=== PATIENT | female | born 1995 | race Caucasian/White ===

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

== ENCOUNTER 2017-02-07 14:29 | Emergency (ER) | payer MEDICAID, OTHER ==
[2017-02-07 14:30] VITALS: BP 124/77; PULSE 89; RESP 15; TEMP 98.4; O2SAT 99
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
[2017-02-07 15:16] LABS: BASOPHIL # 0.1 TH/MM3 (0-0.2); BASOPHIL % 0.6 % (0.0-2.0); EOSINOPHIL # 0.2 TH/MM3 (0-0.4); EOSINOPHIL % 1.9 % (0.0-4.0); HEMATOCRIT 37.6 % (35.0-46.0); HEMO FLAGS DIFF FINAL; LYMPHOCYTE # 1.9 TH/MM3 (1.0-4.8); MEAN CELL VOLUME 92.1 FL (80.0-100.0); MEAN CORPUSCULAR HEMOGLOBIN 30.8 PG (27.0-34.0); MEAN CORPUSCULAR HGB CONC 33.4 % (32.0-36.0); MONO % 7.7 % (0.0-8.0); NEUT % 67.8 % (16.0-70.0); PLATELET COUNT 278 TH/MM3 (150-450); RED BLOOD COUNT 4.08 MIL/MM3 (4.00-5.30); RED CELL DISTRIBUTION WIDTH 12.2 % (11.6-17.2); WHITE BLOOD COUNT 8.9 TH/MM3 (4.0-11.0)
[2017-02-07 15:32] LABS: ANION GAP 6 MEQ/L (5-15); AST (GOT) 21 U/L (16-38); BICARBONATE 23.6 MEQ/L (21.0-32.0); BLOOD UREA NITROGEN 5 MG/DL (7-18); CHLORIDE 107 MEQ/L (98-107); GLOMERULAR FILTRATION RATE 163 ML/MIN (>89); POTASSIUM 3.7 MEQ/L (3.5-5.1); SODIUM (NA) 137 MEQ/L (136-145)
[2017-02-07 15:34] LABS: ALT (GPT) 39 U/L (9-42)
[2017-02-07] MEDS ORDERED: AZITHROMYCIN PWD FOR SUSP 1 GM PACKET PO ONE (16:00)
[2017-02-07] MEDS ORDERED: LIDOCAINE HCL 1% 50 ML VIAL IM ONE (16:00)
[2017-02-07] MEDS ORDERED: cefTRIAXone 250 MG VIAL IM ONE (16:00)
[2017-02-07] MEDS ORDERED: metroNIDAZOLE 500 MG TAB PO ONE (16:00)
[2017-02-07 16:17] LABS: ALKALINE PHOSPHATASE 64 U/L (45-117); BETA HCG QUANT 93097 MIU/ML (0-5); TOTAL BILIRUBIN ADULT 0.3 MG/DL (0.2-1.0)
--- NOTE | 2017-02-07 16:24 | PD ---
Data Data Last Documented VS Vital Signs Date Time Temp Pulse Resp B/P (MAP) Pulse Ox O2 Delivery O2 Flow Rate FiO2 02/07/17 14:30 98.4 89 15 124/77 (93) 99 Orders Orders Beta Hcg (Quant/Titer) (02/07/17 14:40) Complete Blood Count With Diff (02/07/17 14:40) Comprehensive Metabolic Panel (02/07/17 14:40) Ed Poc Ultrasound (02/07/17 14:40) Gc And Chlamydia Pcr (02/07/17 15:17) Wet Prep Profile (02/07/17 15:17) Metronidazole (Flagyl) (02/07/17 16:00) Azithromycin Powd Pack (Zithromax Powd P (02/07/17 16:00) Ceftriaxone Inj (Rocephin Inj) (02/07/17 16:00) Lidocaine 1% Inj (50 Ml) (Xylocaine 1% I (02/07/17 16:00) Labs Laboratory Tests Test 02/07/17 15:00 02/07/17 15:22 White Blood Count 8.9 TH/MM3 Red Blood Count 4.08 MIL/MM3 Hemoglobin 12.6 GM/DL Hematocrit 37.6 % Mean Corpuscular Volume 92.1 FL Mean Corpuscular Hemoglobin 30.8 PG Mean Corpuscular Hemoglobin Concent 33.4 % Red Cell Distribution Width 12.2 % Platelet Count 278 TH/MM3 Mean Platelet Volume 8.3 FL Neutrophils (%) (Auto) 67.8 % Lymphocytes (%) (Auto) 22.0 % Monocytes (%) (Auto) 7.7 % Eosinophils (%) (Auto) 1.9 % Basophils (%) (Auto) 0.6 % Neutrophils # (Auto) 6.0 TH/MM3 Lymphocytes # (Auto) 1.9 TH/MM3 Monocytes # (Auto) 0.7 TH/MM3 Eosinophils # (Auto) 0.2 TH/MM3 Basophils # (Auto) 0.1 TH/MM3 CBC Comment DIFF FINAL Differential Comment Blood Urea Nitrogen 5 MG/DL Creatinine 0.49 MG/DL Random Glucose 88 MG/DL Total Protein 7.6 GM/DL Albumin 3.5 GM/DL Calcium Level 8.7 MG/DL Alkaline Phosphatase 64 U/L Aspartate Amino Transf (AST/SGOT) 21 U/L Alanine Aminotransferase (ALT/SGPT) 39 U/L Total Bilirubin 0.3 MG/DL Sodium Level 137 MEQ/L Potassium Level 3.7 MEQ/L Chloride Level 107 MEQ/L Carbon Dioxide Level 23.6 MEQ/L Anion Gap 6 MEQ/L Estimat Glomerular Filtration Rate 163 ML/MIN Human Chorionic Gonadotropin, Quant 14090 MIU/ML Clue Cells (Wet Prep) NONE SEEN Vaginal Trichomonas (Wet Prep) PRESENT Vaginal Yeast (Wet Prep) NONE SEEN MDM Supervised Visit with ASHLEY: Yes Narrative Course The history, exam, and medical decision-making in the associated mid-level provider note were completed with my assistance. I reviewed and agree with the findings presented. I attest that I had a [id number] encounter with the patient on the same day, and personally performed and documented my assessment and findings in the medical record. *My assessment and Findings: 21-year-old early with some abdominal pain. Bedside ultrasound reassuring. No Trichomonas. She Describes Scant Bloody Discharge. His May Have Been Vaginal Discharge. No Blood on Exam. Treated for Cervicitis. Recommend Outpatient Follow-Up. Procedures Procedure Narrative Point of care ultrasound: Focused abdominal ultrasound perform immediate the bedside to evaluate for well-being so Martinez injured in roughly consistent with dates , good heart movement. Diagnosis Primary Impression: Trichomonas vaginitis Additional Impression: Qualified Codes: Z3A.12 - 12 weeks gestation of Patient Instructions: General Instructions, Safe Sex (ED) Disposition: 01 DISCHARGE HOME Condition: Stable Mehrdad Downing MD Feb 07, 2017 16:24
[2017-02-07] MEDS ORDERED: PREN1TAB60 PO (16:53)
[2017-02-07 16:55] VITALS: BP 131/69; RESP 18; O2SAT 98
[2017-02-07 18:28] LABS: CHLAMYDIA PCR NOT DETECTED (NOT DETECT); NEISSERIA PCR NOT DETECTED (NOT DETECT)
== END 2017-02-07 17:29 | disposition home or self-care (01) ==
LOC: NEPD 14:29
DX: O98.311 Other infections with a predominantly sexual mode of transmission complicating pregnancy, first trimester (principal); A59.01 Trichomonal vulvovaginitis; O99.331 Smoking (tobacco) complicating pregnancy, first trimester; K21.9 Gastro-esophageal reflux disease without esophagitis; Z3A.12 12 weeks gestation of pregnancy; Z79.899 Other long term (current) drug therapy; Z34.91 Encounter for supervision of normal pregnancy, unspecified, first trimester
CPT/HCPCS: 80053; 84702; 85025; 87210; 87491; 87591; 96372; 99284; J0696

== ENCOUNTER 2017-05-05 21:01 | Emergency (ER) | payer MEDICAID ==
[~2017-05-05 21:01] MED LIST changes: -MACR100C2 PO; +PREN1TAB60 PO; -ZANTTAB PO; -ZOFR4TAB3 SL
--- NOTE | 2017-05-05 21:49 | PD ---
HPI Chief Complaint Lower abdominal pain mainly right sided Date Seen: May 05, 2017 Time Seen: 21:40 Travel History International Travel<30 Days: No Contact w/Intl Traveler<30Days: No Known Affected Area: No History of Present Illness HPI Patient is 21-year-old white female 22 wks presents with lower right- sided lower abdominal pain on and off for several weeks. She sees Dr. Grady for care. Patient denies bleeding or leakage of fluid. heart tones were documented tonight. No contractions seen. Uterus is approximately at the umbilicus. Urine dipstick is negative Weeks Gestation: 22 Para: 0 : 1 History Social History Alcohol Use: No Tobacco Use: No Substance Abuse: No Allergies-Medications (Allergen,Severity, Reaction): Coded Allergies: No Known Allergies (Verified , 02/07/17) Home Meds Reported Medications Vits #90/Iron Fum/FA ( Formula Tablet) 9 Mg Iron-500 Mcg Tablet , 1 TAB PO DAILY 02/07/17 Review of Systems General / Constitutional: No: Fever, Weight Gain, Chills, Other Eyes: No: Diploplia, Blurred Vision, Visual changes, Pain, Photophobia HENT: No: Headaches, Vertigo, Lightheadedness Cardiovascular: No: Irregular Rhythm, Chest Pain or Discomfort, Palpitations, Tachycardia, Syncope, Varicosities, Edema, Cyanosis Respiratory: No: Cough, Short of Breath, Other Gastrointestinal: Abdominal Pain, No: Nausea, Vomiting, Diarrhea Genitourinary: No: Decreased Urinary Output, Oliguria Musculoskeletal: No: Limited ROM, Weakness, Cramping, Edema, Pain Skin: No Rash, No Itching, No Dryness, No Lumps, No Change in Pigmentation, No Change in Nails, No Alopecia, No Lesions Neurologic: No: Weakness, Dizziness, Syncope, Focal Abnormalities, Coordination Problem, Headache, Slurred Speech, Seizures Psychiatric: No: Depression, Suicidal Ideations, Homicidal Ideation Endocrine: No: Heat Intolerance, Cold Intolerance, Polydipsia, Polyuria, Other Physical Exam Narrative GENERAL: Well-nourished, well-developed patient. SKIN: Warm and dry. HEAD: Normocephalic and atraumatic. EYES: No scleral icterus. No injection or drainage. ENT: No nasal drainage noted. Mucous membranes pink. Airway patent. NECK: Supple, trachea midline. No JVD. CARDIOVASCULAR: Regular rate and rhythm without murmurs, gallops, or rubs. RESPIRATORY: Breath sounds equal bilaterally. No accessory muscle use. BREASTS: Bilateral exam showed no masses , no retractions, no nipple discharge. ABDOMEN/GI: Abdomen soft, non-tender, bowel sounds present, no rebound, no guarding Gravid to [-22] weeks size Fundal Height: [-at umbilicus] GENITOURINARY: External Genitalia: intact and normal in appearance BUS glands: [-] Cervix: [-] Dilatation: [-closed] Effacement: [-thick] Station: [-3] Membranes: [intact ] Uterine Contractions: [-none] FHT's: 140s EXTREMITIES: No cyanosis or edema. BACK: Nontender without obvious deformity. No CVA tenderness. NEUROLOGICAL: Awake and alert. Motor and sensory grossly within normal limits. Five out of 5 muscle strength in all muscle groups. Normal speech. Data Data Labs Urine dipstick on OB ED is negative MDM Interpretation(s) Patient is a 21-year-old white female at [address] Grady for care and presents combining of lower right-sided pain on and off for several weeks. This is apparently round ligament pain on that right side this was explained to the patient. Her urine is negative, there are no other etiologies or sources of pain. Plan Plan for patient to be at bedrest at home, Tylenol for pain, heating pad on low across the lower abdomen is fine, and drinking lots of fluid hydrate flush the bladder., She is to follow Dr. Grady for further problems Diagnosis Diagnosis: Primary Impression: Pain of round ligament during Additional Impression: 22 weeks gestation of Disposition: 01 DISCHARGE HOME Condition: Stable Ricki Trivedi II, MD May 05, 2017 21:49
[2017-05-05 22:40] LABS: BLOOD, URINE NEG (NEG); COMMENT (UR) CULT NOT INDICATED; CULTURE IF INDICATED CULT NOT INDICATED; GLUCOSE,URINE 70 mg/dL (NEG); KETONE, URINE NEG (NEG); MUCUS URINE FEW /lpf (OCC); NITRITE,URINE NEG (NEG); SQUAMOUS EPITHELIAL CELL URINE 3 /hpf (0-5); URINE COLOR YELLOW (YELLW/STRAW)
== END 2017-05-05 22:40 | disposition home or self-care (01) ==
LOC: HOBED 21:01
DX: O26.892 Other specified pregnancy related conditions, second trimester (principal); R10.2 Pelvic and perineal pain; Z3A.22 22 weeks gestation of pregnancy
CPT/HCPCS: 81001; 99283

== ENCOUNTER 2017-08-19 22:52 | Emergency (ER) | payer MEDICAID ==
--- NOTE | 2017-08-19 23:54 | PD ---
HPI Chief Complaint Contractions Travel History International Travel<30 Days: No Contact w/Intl Traveler<30Days: No Known Affected Area: No History of Present Illness HPI 22-year-old , IUP at 38.1 care uncomplicated per patient report The patient presents complaining of the onset of contractions this evening, she reports they're every 8 minutes and mild. She denies any aggravating or alleviating factors. There are no attempted treatments. She reports she was checked in the office yesterday and was 2/50/-2. She reports good movement. She denies any leaking of fluid or vaginal bleeding. She has no other concerns or complaints tonight Weeks Gestation: 38 Para: 0 : 1 Miscarriage: 0 : 0 History Past Medical History Narrative Medical History of liver disease, migraines, depression Past Surgical History Narrative Surgical Cholecystectomy Family History Narrative Family History CAD, [place], CVA, diabetes, hypertension, ovarian cancer Social History Alcohol Use: No Tobacco Use: No Substance Abuse: No Allergies-Medications (Allergen,Severity, Reaction): Coded Allergies: No Known Allergies (Verified , 02/07/17) Home Meds Reported Medications Vits #90/Iron Fum/FA ( Formula Tablet) 9 Mg Iron-500 Mcg Tablet , 1 TAB PO DAILY 02/07/17 Review of Systems Except as stated in HPI: all other systems reviewed are Neg Physical Exam Narrative GENERAL: Well-nourished, well-developed patient. SKIN: Warm and dry. HEAD: Normocephalic and atraumatic. EYES: No scleral icterus. No injection or drainage. ENT: No nasal drainage noted. Mucous membranes pink. Airway patent. NECK: Supple, trachea midline. No JVD. CARDIOVASCULAR: Regular rate and rhythm without murmurs, gallops, or rubs. RESPIRATORY: Breath sounds equal bilaterally. No accessory muscle use. BREASTS: Deferred ABDOMEN/GI: Abdomen soft, non-tender, bowel sounds present, no rebound, no guarding Gravid GENITOURINARY: External Genitalia: intact and normal in appearance. Normal BUS. Grossly normal rugae. No cervical or vaginal masses noted. Physiologic discharge. SVE 2/50/-2 per RN. FHT's: heart tones in the 120s moderate long-term variability, good accelerations, no decelerations noted. This category 1 heart rate tracing and a reactive NST. EXTREMITIES: No cyanosis or edema. BACK: Nontender without obvious deformity.. NEUROLOGICAL/musculoskeletal: Awake and alert. Motor and sensory grossly within normal limits. Five out of 5 muscle strength in all muscle groups. Normal speech. Grossly normal range of motion, gait, muscle strength Psychiatric: Grossly normal memory and affect MDM Plan Assessment/plan: 1. IUP at 38 weeks 2. No evidence of active labor: Labor precautions given, education provided, strict labor precautions 3. Reassuring testing with reactive NST and category 1 heart rate tracing. FHR reassuring and appropriate for gestational age. kick counts daily. 4. Follow up with primary OB in 2-3 days or sooner if needed 5. History of migraine headaches 6. History of depression Disposition: 01 DISCHARGE HOME Condition: Stable Patient Instructions: General Instructions, Having Your Baby: The Labor Process (GEN), Movement (ED), Abdominal Pain in (ED) Departure Forms: Tests/Procedures Ingris Hood MD Aug 19, 2017 23:54
--- NOTE | 2017-08-20 10:00 | PD ---
MDM Diagnosis Diagnosis: Primary Impression: 38 weeks gestation of Additional Impression: False labor after 37 weeks of gestation without delivery Disposition: 01 DISCHARGE HOME Condition: Good Patient Instructions: General Instructions, Having Your Baby: The Labor Process (GEN), Movement (ED), Abdominal Pain in (ED) Departure Forms: Tests/Procedures Ingris Hood MD Aug 20, 2017 10:00
== END 2017-08-20 10:57 | disposition home or self-care (01) ==
LOC: HOBED 22:52
DX: O47.1 False labor at or after 37 completed weeks of gestation (principal); O99.343 Other mental disorders complicating pregnancy, third trimester; F32.9 Major depressive disorder, single episode, unspecified; Z3A.38 38 weeks gestation of pregnancy; O26.613 Liver and biliary tract disorders in pregnancy, third trimester; K76.9 Liver disease, unspecified; Z79.899 Other long term (current) drug therapy
CPT/HCPCS: 59025

== ENCOUNTER 2017-08-28 08:14 | Inpatient (IN) | payer MEDICAID ==
[~2017-08-28] VITALS: Ht 175.3 cm; Wt 78.5 kg
[2017-08-28] VITALS (49 sets, daily range): BP systolic 90–140; BP diastolic 52–103; PULSE 63–119; RESP 14–20; TEMP 98–98.8; O2SAT 100
[2017-08-28 09:15] LABS: AUTOMATED NEUTROPHIL # 8.9 TH/MM3 (1.8-7.7); BASOPHIL # 0.1 TH/MM3 (0-0.2); BASOPHIL % 0.7 % (0.0-2.0); EOSINOPHIL # 0.2 TH/MM3 (0-0.4); EOSINOPHIL % 1.6 % (0.0-4.0); HEMATOCRIT 35.2 % (35.0-46.0); HEMOGLOBIN 12.4 GM/DL (11.6-15.3); LYMPH % 19.3 % (9.0-44.0); LYMPHOCYTE # 2.5 TH/MM3 (1.0-4.8); MEAN CELL VOLUME 91.5 FL (80.0-100.0); MEAN CORPUSCULAR HEMOGLOBIN 32.1 PG (27.0-34.0); MEAN CORPUSCULAR HGB CONC 35.1 % (32.0-36.0); MEAN PLATELET VOLUME 9.5 FL (7.0-11.0); MONO % 9.5 % (0.0-8.0); MONOCYTE # 1.2 TH/MM3 (0-0.9); NEUT % 68.9 % (16.0-70.0); PLATELET COUNT 286 TH/MM3 (150-450); RED BLOOD COUNT 3.85 MIL/MM3 (4.00-5.30); RED CELL DISTRIBUTION WIDTH 13.8 % (11.6-17.2)
[2017-08-28 09:16] LABS: BACTERIA, URINE MANY /hpf; BILIRUBIN, URINE NEG (NEG); BLOOD, URINE NEG (NEG); GLUCOSE,URINE NEG (NEG); KETONE, URINE NEG (NEG); MUCUS URINE MANY /lpf (OCC); NITRITE,URINE NEG (NEG); PH, URINE 6.5 (5.0-8.5); SQUAMOUS EPITHELIAL CELL URINE 89 /hpf (0-5); URINE COLOR YELLOW (YELLW/STRAW); URINE LEUKOCYTE ESTERASE LARGE (NEG)
--- NOTE | 2017-08-28 09:51 | HHI.HP ---
HPI Chief Complaint induction for 39 weeks with dixon score of 9 Date Seen: Aug 28, 2017 Time Seen: 09:00 Travel History International Travel<30 Days: No Contact w/Intl Traveler<30Days: No Known Affected Area: No History of Present Illness HPI 22 yo here for induction. She is ok with AROM and clear fluid and start pitocin. Weeks Gestation: 39 Para: 0 : 1 History Past Medical History Medical History: Denies Significant Hx Past Surgical History Narrative Surgical gallbladder Family History Family History: Negative Social History Alcohol Use: No Tobacco Use: No Substance Abuse: No Allergies-Medications (Allergen,Severity, Reaction): Coded Allergies: No Known Allergies (Verified Allergy, Unknown, 08/28/17) Home Meds Reported Medications Vits #90/Iron Fum/FA ( Formula Tablet) 9 Mg Iron-500 Mcg Tablet , 1 TAB PO DAILY 02/07/17 Review of Systems Except as stated in HPI: all other systems reviewed are Neg Physical Exam Vital Signs Date Time Temp Pulse Resp B/P (MAP) Pulse Ox O2 Delivery O2 Flow Rate FiO2 08/28/17 09:04 85 129/81 (97) Narrative GENERAL: Well-nourished, well-developed patient. SKIN: Warm and dry. HEAD: Normocephalic and atraumatic. EYES: No scleral icterus. No injection or drainage. ENT: No nasal drainage noted. Mucous membranes pink. Airway patent. NECK: Supple, trachea midline. No JVD. CARDIOVASCULAR: Regular rate and rhythm without murmurs, gallops, or rubs. RESPIRATORY: Breath sounds equal bilaterally. No accessory muscle use. BREASTS: Bilateral exam showed no masses , no retractions, no nipple discharge. ABDOMEN/GI: Abdomen soft, non-tender, bowel sounds present, no rebound, no guarding Gravid to 39 weeks size Fundal Height: [-] GENITOURINARY: External Genitalia: intact and normal in appearance BUS glands: [-] Cervix: [-] Dilatation: 3 Effacement: 80 Station: -2 Presentation: vtx Membranes: AROM Uterine Contractions: few FHT's: Category: 1 Baseline: [-] Reactive: [-] Variability: [-] Decels: [-] EXTREMITIES: No cyanosis or edema. BACK: Nontender without obvious deformity. No CVA tenderness. NEUROLOGICAL: Awake and alert. Motor and sensory grossly within normal limits. Five out of 5 muscle strength in all muscle groups. Normal speech. Caprini VTE Risk Assessment Caprini VTE Risk Assessment: No/Low Risk (score <= 1) Caprini Risk Assessment Model Point Value = 1 Point Value = 2 Point Value = 3 Point Value = 5 Age 41-60 Minor surgery BMI > 25 kg/m2 Swollen legs Varicose veins or History of unexplained or recurrent spontaneous Oral contraceptives or hormone replacement Sepsis (< 1 month) Serious lung disease, including pneumonia (< 1 month) Abnormal pulmonary function Acute myocardial infarction Congestive heart failure (< 1 month) History of inflammatory bowel disease Medical patient at bed rest Age 61-74 Arthroscopic surgery Major open surgery (> 45 min) Laparoscopic surgery (> 45 min) Malignancy Confined to bed (> 72 hours) Immobilizing plaster cast Central venous access Age >= 75 History of VTE Family history of VTE Factor V Leiden Prothrombin [id number] Lupus anticoagulant Anticardiolipin antibodies Elevated serum homocysteine Heparin-induced thrombocytopenia Other congenital or acquired thrombophilia Stroke (< 1 month) Elective arthroplasty Hip, pelvis, or leg fracture Acute spinal cord injury (< 1 month) Prophylaxis Regimen Total Risk Factor Score Risk Level Prophylaxis Regimen 0-1 Low Early ambulation 2 Moderate Order ONE of the following: *Sequential Compression Device (SCD) *Heparin 5000 units SQ BID 3-4 Higher Order ONE of the following medications: *Heparin 5000 units SQ TID *Enoxaparin/Lovenox 40 mg SQ daily (WT < 150 kg, CrCl > 30 mL/min) *Enoxaparin/Lovenox 30 mg SQ daily (WT < 150 kg, CrCl > 10-29 mL/min) *Enoxaparin/Lovenox 30 mg SQ BID (WT < 150 kg, CrCl > 30 mL/min) AND/OR *Sequential Compression Device (SCD) 5 or more Highest Order ONE of the following medications: *Heparin 5000 units SQ TID (Preferred with Epidurals) *Enoxaparin/Lovenox 40 mg SQ daily (WT < 150 kg, CrCl > 30 mL/min) *Enoxaparin/Lovenox 30 mg SQ daily (WT < 150 kg, CrCl > 10-29 mL/min) *Enoxaparin/Lovenox 30 mg SQ BID (WT < 150 kg, CrCl > 30 mL/min) AND *Sequential Compression Device (SCD) Data Data Vital Signs Reviewed: No Orders Orders Admit To Inpatient (08/28/17 ) Vital Signs (Adult) .Per protocol (08/28/17 08:50) Heart (08/28/17 08:50) Amnioinfusion (08/28/17 08:50) Urinary Catheter Management .ONCE (08/28/17 08:50) Diet Liquid (08/28/17 Breakfast) Complete Blood Count With Diff (08/28/17 08:50) Hold Clot (08/28/17 08:50) Abo/Rh Blood Type (08/28/17 08:50) Urinalysis - C+S If Indicated (08/28/17 08:50) Ob/Psych Drug Screen, Urine (08/28/17 08:50) Resp Oxygen Non Rebreathe Mask (08/28/17 ) ^ Epidural / Intrathecal Infus (08/28/17 08:50) Specimen To Be Collected PRN (08/28/17 08:50) Specimen To Be Collected PRN (08/28/17 08:50) Urine Culture (08/28/17 08:45) Mrsa Pcr Surveillance (08/28/17 08:45) ^ Non Stress Test (08/28/17 09:36) Response To Medication .Post New Med Administration, Reaction (08/28/17 09:36) ^ Discontinue Medication (08/28/17 09:36) Oxytocin 30 Units-500ml Premix (Pitocin (08/28/17 09:45) Lactated Ringer's 1000 Ml Inj (Lr 1000 M (08/28/17 09:45) Group B Strep: Negative Labs Laboratory Tests Test 08/28/17 08:45 White Blood Count 13.0 Red Blood Count 3.85 Hemoglobin 12.4 Hematocrit 35.2 Mean Corpuscular Volume 91.5 Mean Corpuscular Hemoglobin 32.1 Mean Corpuscular Hemoglobin Concent 35.1 Red Cell Distribution Width 13.8 Platelet Count 286 Mean Platelet Volume 9.5 Neutrophils (%) (Auto) 68.9 Lymphocytes (%) (Auto) 19.3 Monocytes (%) (Auto) 9.5 Eosinophils (%) (Auto) 1.6 Basophils (%) (Auto) 0.7 Neutrophils # (Auto) 8.9 Lymphocytes # (Auto) 2.5 Monocytes # (Auto) 1.2 Eosinophils # (Auto) 0.2 Basophils # (Auto) 0.1 CBC Comment DIFF FINAL Differential Comment Urine Color YELLOW Urine Turbidity CLOUDY Urine pH 6.5 Urine Specific [place] 1.026 Urine Protein 30 Urine Glucose (UA) NEG Urine Ketones NEG Urine Occult Blood NEG Urine Nitrite NEG Urine Bilirubin NEG Urine Urobilinogen 2.0 Urine Leukocyte Esterase LARGE Urine RBC 12 Urine WBC 22 Urine Squamous Epithelial Cells 89 Urine Bacteria MANY Urine Mucus MANY Microscopic Urinalysis Comment CULTURE INDICATED Urine Opiates Screen NEG Urine Barbiturates Screen NEG Urine Amphetamines Screen NEG Urine Benzodiazepines Screen NEG Urine Cocaine Screen NEG Urine Cannabinoids Screen NEG Date/Time Source Procedure Growth Status 08/28/17 08:45 Urine Clean Catch Urine Culture Pending Received Assessment/Plan Problem List: (1) 39 weeks gestation of ICD Codes: Z3A.39 - 39 weeks gestation of Plan: induction with pitocin Keyur Gonsales MD Aug 28, 2017 09:51
[2017-08-28] MEDS ORDERED: fentaNYL 2MCG-BUPIV 0.125% INJ 100 ML ONE ×2 (09:55→21:20)
[2017-08-28] MEDS ORDERED: LACTATED RINGER'S 1000 ML INJ 1,000 ML IV SCH (10:00)
[2017-08-28] MEDS ORDERED: OXYTOCIN 30 UNITS-500ML PREMIX 500 ML IV PRN (10:00)
[2017-08-28] MEDS ORDERED: MINERAL OIL 10 ML VIAL TOPICAL PRN (11:00)
[2017-08-28] MEDS ORDERED: OXYTOCIN 30 UNITS 500ML PREMIX IV ONE (11:00)
[2017-08-28] MEDS ORDERED: LIDOCAINE HCL 1% 50 ML VIAL I-DERMAL PRN (11:00)
[2017-08-28] MEDS ORDERED: CITRIC ACID-SODIUM CITRATE LIQ 30 ML UDC PO SCH (11:00)
[2017-08-28] MEDS ORDERED: LACTATED RINGER'S 1000 ML BOLUS IV PRN (11:00)
[2017-08-28] MEDS ORDERED: LIDOCAINE HCL 1% 50 ML VIAL INFIL PRN (11:00)
[2017-08-28] MEDS ORDERED: NS 500 ML BOLUS IV PRN (11:00)
[2017-08-28] MEDS ORDERED: NS 1000 ML IV PRN (11:00)
[2017-08-28] MEDS ORDERED: MEASLES, MUMPS, RUBELLA VACCINE 0.5 ML VIAL SQ ONE (16:00)
[2017-08-28] MEDS ORDERED: DIPHTH/TETANUS/ACEL PERTUSSIS (BOOSTER) 0.5 ML VIAL/PFS IM ONE (16:00)
[2017-08-28] MEDS ORDERED: LIDOCAINE HCL 1.5% PF 20 ML AMP ONE (16:24)
[2017-08-28] MEDS: LACTATED RINGER'S 1000 ML IV SCH (19:28)
[2017-08-28] MEDS ORDERED: ePHEDrine/NS 25 MG/5 ML SYRINGE ONE (21:20)
--- NOTE | 2017-08-28 22:55 | PD.OB.DELI ---
Weeks gestation: 39 Gest age assessed date: Aug 28, 2017 Gest age assessed time: 09:00 Pt started active labor?: Yes Active labor start date: Aug 28, 2017 Active labor start time: 09:00 Medical induction of labor?: No Artificial rupture of membrane: Yes Artificial ROM date: Aug 28, 2017 Artifical ROM time: 09:01 Anesthesia: Epidural Episiotomy: None Vaginal Delivery: Normal, Spontaneous Presentation: Occiput anterior Nuchal Cord: x1 Delayed cord clamping (45 sec): Yes Infant: Female, Single Delivery date: Aug 28, 2017 Delivery time: 22:36 One Minute : 8 Five Minute : 9 Placenta: Spontaneous delivery, Intact, 3 vessel cord Laceration: Vaginal laceration, 1 deg Repair: Chromic running Estimated blood loss: 300 Keyur Gonsales MD Aug 28, 2017 22:55
[2017-08-28] MEDS ORDERED: BENZOCAINE 20% TOPICAL SPRAY 60 ML CAN TOPICAL PRN (23:00)
[2017-08-28] MEDS ORDERED: ACETAMINOPHEN 325 MG TAB PO PRN (23:00)
[2017-08-28] MEDS ORDERED: DOCUSATE SODIUM 50 MG/SENNA 8.6 MG TAB PO PRN (23:00)
[2017-08-28] MEDS ORDERED: OXYTOCIN 30 UNITS-500ML PREMIX 500 ML IV SCH (23:00)
[2017-08-28] MEDS ORDERED: oxyCODONE/ACETAMINOPHEN 5 MG/325 MG TAB PO PRN ×2 (23:00)
[2017-08-28] MEDS ORDERED: SODIUM CHLORIDE 0.9% FLUSH 10 ML FLUSH IV FLUSH PRN (23:00)
[2017-08-28] MEDS ORDERED: ALUMINUM/MAGNESIUM/SIMETH 30 ML CUP PO PRN (23:00)
[2017-08-28] MEDS ORDERED: ZOLPIDEM TARTRATE 5 MG TAB PO PRN (23:00)
[2017-08-28] MEDS ORDERED: WITCH HAZEL 50%/GLYCERIN 12.5% 40 PAD JAR TOPICAL PRN (23:00)
[2017-08-28] MEDS ORDERED: ONDANSETRON ODT 4 MG TAB PO PRN (23:00)
--- NOTE | 2017-08-28 23:00 | HHI.DCPOC ---
Discharge Care Plan Diagnosis: (1) 39 weeks gestation of (2) Spontaneous vaginal delivery Report Symptoms to Your Doctor -Temperature above 100.5 degrees -Redness, of incision or excessive or foul smelling drainage -Unusual pain or calf pain -Increased vaginal bleeding -Painful or difficulty urinating -Feelings of extreme sadness or anxiety after 2 weeks Goals to Promote Your Health * To prevent worsening of your condition and complications * To maintain your health at the optimal level Directions to Meet Your Goals Take your medications as prescribed Follow your dietary instruction Follow activity as directed Ensure plenty of rest for recovery Drink fluids for hydration Keep your appointments as scheduled Take your immunizations and boosters as scheduled If your symptoms worsen call your PCP, if no PCP go to Urgent Care Center or Emergency Room Smoking is Dangerous to Your Health. Avoid second hand smoke Call the 24-hour crisis hotline for domestic abuse at Keyur Gonsales MD Aug 28, 2017 23:00
[2017-08-29] MEDS: IBUPROFEN 800 MG TAB PO PRN ×2 (00:09→09:49)
[2017-08-29 00:54] VITALS: BP 126/81; PULSE 84; RESP 17; TEMP 99.4
[2017-08-29 09:00] VITALS: BP 130/75; PULSE 77; RESP 18; TEMP 98.3
[2017-08-29] MEDS ORDERED: SODIUM CHLORIDE 0.9% FLUSH 10 ML FLUSH IV FLUSH SCH (09:00)
--- NOTE | 2017-08-29 12:25 | HHI.OB ---
Subjective Post Day: 1 Remarks pain controlled, mod lochia, pipe po, +void/flatus Objective Vitals/I&O Vital Signs Date Time Temp Pulse Resp B/P (MAP) Pulse Ox O2 Delivery O2 Flow Rate FiO2 08/29/17 09:00 98.3 77 18 130/75 (93) 08/29/17 00:54 99.4 84 17 126/81 (96) 08/28/17 23:46 81 127/55 (79) 08/28/17 23:31 96 132/81 (98) 08/28/17 23:15 89 124/73 (90) 08/28/17 23:05 98.8 08/28/17 23:05 14 08/28/17 23:01 88 105/52 (69) 08/28/17 22:45 99 125/65 (85) 08/28/17 22:25 119 100 08/28/17 22:20 95 100 08/28/17 22:15 101 100 08/28/17 22:10 106 100 08/28/17 22:05 100 08/28/17 22:05 93 08/28/17 22:01 93 125/70 (88) 08/28/17 22:00 84 08/28/17 22:00 100 08/28/17 21:50 94 08/28/17 21:50 77 130/68 (88) 100 08/28/17 21:45 97 08/28/17 21:45 82 138/64 (88) 100 08/28/17 21:40 87 127/103 (111) 100 08/28/17 21:35 90 08/28/17 21:35 88 127/74 (91) 100 08/28/17 21:30 80 08/28/17 21:30 98 128/66 (86) 100 08/28/17 21:01 93 90/67 (75) 08/28/17 20:30 82 125/76 (92) 08/28/17 20:00 65 123/73 (90) 08/28/17 19:31 72 140/81 (100) 08/28/17 19:00 75 131/73 (92) 08/28/17 18:51 98.6 20 08/28/17 18:01 70 130/68 (88) 3/24/18 17:42 81 124/67 (86) 08/28/17 17:15 98.1 18 08/28/17 17:01 77 129/69 (89) 08/28/17 16:34 65 115/72 (86) 08/28/17 16:01 73 126/66 (86) 08/28/17 15:30 70 117/69 (85) 08/28/17 15:19 98.4 18 08/28/17 15:00 109 131/73 (92) 08/28/17 14:30 81 136/69 (91) 08/28/17 14:00 80 122/66 (84) 08/28/17 13:30 82 114/62 (79) 08/28/17 13:11 98.0 18 08/28/17 13:00 79 130/61 (84) 08/28/17 12:30 74 126/70 (88) Objective Remarks GENERAL: Well-nourished, well-developed patient. CARDIOVASCULAR: Regular rate and rhythm without murmurs, gallops, or rubs. RESPIRATORY: Breath sounds equal bilaterally. No accessory muscle use. ABDOMEN/GI: Abdomen soft, non-tender. Fundus: Firm, non-tender at umbilicus. GENITOURINARY: Light to moderate bleeding. EXTREMITIES: No cyanosis or edema, non-tender, without signs of DVT. Medications and IVs Current Medications Medications (Trade) Dose Ordered Sig/Katy Route Start Time Stop Time Status Last Admin (NS Flush) 2 ml BID IV FLUSH 08/29/17 09:00 (NS Flush) 2 ml UNSCH PRN IV FLUSH 08/28/17 23:00 (Tylenol) 650 mg Q4H PRN PO 08/28/17 23:00 (Motrin) 800 mg Q8H PRN PO 08/28/17 23:00 08/29/17 09:49 (Percocet 5-325 Mg) 1 tab Q4H PRN PO 08/28/17 23:00 (Percocet 5-325 Mg) 2 tab Q4H PRN PO 08/28/17 23:00 (Americaine 20% Top Spr) 1 spray Q4H PRN TOPICAL 08/28/17 23:00 (Tucks Pads) 1 applic QID PRN TOPICAL 08/28/17 23:00 (Zeinab-Colace) 2 tab Q12H PRN PO 08/28/17 23:00 08/29/17 09:48 (Ambien) 5 mg HS PRN PO 08/28/17 23:00 (Mag-Al Plus Susp Liq) 15 ml Q8H PRN PO 08/28/17 23:00 (Zofran Odt) 4 mg Q6H PRN PO 08/28/17 23:00 Assessment/Plan Problem List: (1) Spontaneous vaginal delivery ICD Codes: O80 - Encounter for full-term uncomplicated delivery Plan: routine pp care (2) Smoker ICD Codes: F17.200 - Nicotine dependence, unspecified, uncomplicated Plan: encouraged cessation nicotine patch ordered Spencer Burgos MD Aug 29, 2017 12:25
[2017-08-29] MEDS: NICOTINE 14 MG/24 HR PATCH T-DERMAL SCH (15:28)
[2017-08-30 08:00] VITALS: BP 142/80; PULSE 70; RESP 18; TEMP 98.5; O2SAT 100
[2017-08-30] MEDS: IBUPROFEN 800 MG TAB PO PRN (08:09)
[2017-08-30] MEDS: NICOTINE 14 MG/24 HR PATCH T-DERMAL SCH (08:10)
[2017-08-30] MEDS ORDERED: OXYC1TAB63 PO (08:34)
--- NOTE | 2017-08-30 08:38 | HHI.OB ---
Subjective Post Day: 2 Remarks doing well ready for DC home Objective Vitals/I&O Vital Signs Date Time Temp Pulse Resp B/P (MAP) Pulse Ox O2 Delivery O2 Flow Rate FiO2 08/29/17 10:45 18 08/29/17 09:00 98.3 77 18 130/75 (93) Objective Remarks GENERAL: Well-nourished, well-developed patient. ABDOMEN/GI: Abdomen soft, non-tender. Fundus: Firm, non-tender at umbilicus. GENITOURINARY: Light to moderate bleeding. EXTREMITIES: No cyanosis or edema, non-tender, without signs of DVT. Medications and IVs Current Medications Medications (Trade) Dose Ordered Sig/Katy Route Start Time Stop Time Status Last Admin (NS Flush) 2 ml BID IV FLUSH 08/29/17 09:00 (NS Flush) 2 ml UNSCH PRN IV FLUSH 08/28/17 23:00 (Tylenol) 650 mg Q4H PRN PO 08/28/17 23:00 (Motrin) 800 mg Q8H PRN PO 08/28/17 23:00 08/30/17 08:09 (Percocet 5-325 Mg) 1 tab Q4H PRN PO 08/28/17 23:00 (Percocet 5-325 Mg) 2 tab Q4H PRN PO 08/28/17 23:00 (Americaine 20% Top Spr) 1 spray Q4H PRN TOPICAL 08/28/17 23:00 (Tucks Pads) 1 applic QID PRN TOPICAL 08/28/17 23:00 (Zeinab-Colace) 2 tab Q12H PRN PO 08/28/17 23:00 08/29/17 09:48 (Ambien) 5 mg HS PRN PO 08/28/17 23:00 (Mag-Al Plus Susp Liq) 15 ml Q8H PRN PO 08/28/17 23:00 (Zofran Odt) 4 mg Q6H PRN PO 08/28/17 23:00 (Habitrol 14 Mg Patch.24 Hr) 1 patch DAILY T-DERMAL 08/29/17 12:30 08/30/17 08:10 Miscellaneous Information 1 DAILY T-DERMAL 08/30/17 09:00 Assessment/Plan Problem List: (1) Spontaneous vaginal delivery ICD Codes: O80 - Encounter for full-term uncomplicated delivery Plan: routine pp care (2) Smoker ICD Codes: F17.200 - Nicotine dependence, unspecified, uncomplicated Plan: encouraged cessation nicotine patch ordered Assessment and Plan [facility] Keyur Gonsales MD Aug 30, 2017 08:38
--- NOTE | 2017-08-30 08:39 | HHI.DS ---
Admission Date Aug 28, 2017 at 08:14 Discharge Date: Aug 30, 2017 Admitting Diagnosis Diagnosis: (1) 39 weeks gestation of Diagnosis: Principal ICD Codes: Z3A.39 - 39 weeks gestation of (2) Spontaneous vaginal delivery Diagnosis: Principal ICD Codes: O80 - Encounter for full-term uncomplicated delivery Delivery Date: Aug 28, 2017 Vaginal Delivery: Normal, Spontaneous Infant: Female, Single Brief History 22 yo here for induction. She is ok with AROM and clear fluid and start pitocin. Hospital Course on day of admission dc home 36 hours PP Pt Condition on Discharge: Good Discharge Disposition: Discharge Home Discharge Instructions Diet Instructions: As Tolerated, No Restrictions Activities You Can Perform: Pelvic Rest Activities to Avoid: Driving for 24 hrs Follow up Referrals: CLINICAL RESEARCH ASSISTANT - 2 Weeks @ [facility] with Keyur Gonsales MD New Medications: Oxycodone HCl/Acetaminophen (Oxycodone-Acetaminophen 5-325) 5 Mg-325 Mg Tablet 2 TAB PO Q4H PRN for PAIN SCALE 6 TO 10, #20 TAB Discontinued Medications: Vits #90/Iron Fum/FA ( Formula Tablet) 9 Mg Iron-500 Mcg Tablet 1 TAB PO DAILY Keyur Gonsales MD Aug 30, 2017 08:39
[2017-08-30] MEDS ORDERED: REMOVE OLD PATCH T-DERMAL SCH (09:00)
== END 2017-08-30 11:13 | disposition home or self-care (01) | DRG 775 ==
LOC: H2EA 08:14 → H1EA 08-29 00:22
PROVIDERS: ADMIT Obstetrics & Gynecology; ATTEND Obstetrics & Gynecology
PROC: 10E0XZZ Delivery of Products of Conception, External Approach (ICD-10-PCS; principal; 2017-08-28)
PROC: 0HQ9XZZ Repair Perineum Skin, External Approach (ICD-10-PCS; 2017-08-28)
PROC: 10907ZC Drainage of Amniotic Fluid, Therapeutic from Products of Conception, Via Natural or Artificial Opening (ICD-10-PCS; 2017-08-28)
PROC: 3E033VJ Introduction of Other Hormone into Peripheral Vein, Percutaneous Approach (ICD-10-PCS; 2017-08-28)
PROC: 00HU33Z Insertion of Infusion Device into Spinal Canal, Percutaneous Approach (ICD-10-PCS; 2017-08-28)
PROC: 3E0R3BZ Introduction of Anesthetic Agent into Spinal Canal, Percutaneous Approach (ICD-10-PCS; 2017-08-28)
DX: O32.8XX0 Maternal care for other malpresentation of fetus, not applicable or unspecified (principal); F17.200 Nicotine dependence, unspecified, uncomplicated; O99.334 Smoking (tobacco) complicating childbirth; O70.0 First degree perineal laceration during delivery; O69.81X0 Labor and delivery complicated by cord around neck, without compression, not applicable or unspecified; Z3A.39 39 weeks gestation of pregnancy; Z37.0 Single live birth
CPT/HCPCS: 59025; 80307; 81001; 86900; 86901; 87086; 87641; 90715; G0481; J2590; J3010; J7120